=== PATIENT | male | born 1960 | race Caucasian/White ===

== ENCOUNTER 2020-03-30 14:58 | Emergency (ER) | payer OTHER ==
--- NOTE | 2020-03-30 15:14 | PDOC ---
Rapid Medical Evaluation Time Seen by Provider: 03/30/20 15:12 Medical Evaluation: 03/30/20 15:14 Pt presents for head and neck pain after a piece of ceiling fell on her head from a water leak. No loc Exam: NAD. No gross neuro deficits, moving all extremities Orders: defer to provider Pt to proceed to the ER for further evaluation
[2020-03-30 15:24] VITALS: PULSE 61; TEMP 97.8; BMI 30.7
[2020-03-30 15:44] VITALS: BP 173/106
--- NOTE | 2020-03-30 15:44 | PDOC ---
History of Present Illness - General Chief Complaint: Injury Stated Complaint: INJURY Time Seen by Provider: 03/30/20 15:12 History Source: Patient - History of Present Illness Occurred: reports: this morning Pain Location: reports: head Past History - Medical History Allergies/Adverse Reactions: Allergies Allergy/AdvReac Type Severity Reaction Status Date / Time No Known Allergies Allergy Verified 03/30/20 15:20 COPD: No - Psycho-Social/Smoking History Smoking History: Never smoked Review of Systems - Review of Systems Musculoskeletal: No: Back Pain, Neck Pain Neurological: Yes: Headache. No: Numbness, Tingling, Weakness, Dizziness *Physical Exam - Vital Signs Last Vital Signs Temp Pulse Resp BP Pulse Ox 97.8 F 61 18 174/108 H 98 03/30/20 15:18 03/30/20 15:18 03/30/20 15:18 03/30/20 15:18 03/30/20 15:18 - Physical Exam General Appearance: Yes: Appropriately Dressed. No: Apparent Distress HEENT: positive: Normal Voice Neck: positive: Supple. negative: Tender, Decreased range of motion Respiratory/Chest: negative: Respiratory Distress Extremity: positive: Normal Inspection. negative: Tender, Swelling Integumentary: positive: Dry, Warm Neurologic: positive: Fully Oriented, Alert, Normal Mood/Affect, Motor Strength 5/5 Medical Decision Making - Medical Decision Making 03/30/20 15:42 60-year-old male, h/o HTN, here for evaluation s/p injury this am. Pt states family were all in a bedroom about 7 hours ago at home when part of the ceiling fell onto all of them. Patient states he had mild ARMANDO earlier this am that has since resolved. On baby asa. No LOC, dizziness, blurry vision, n/v. Has not taken anything for pain. Patient well-appearing, in no apparent distress, with no evidence of serious injury at this time w/ intact neuro exam. BP significantly elevated. Patient reports compliance with meds. Asymptomatic from BP standpoint. Will give extra dose of home meds and encourage PMD follow- up in the a.m. for further management. Reasons to return discussed with patient Discharge - Discharge Information Problems reviewed: Yes Clinical Impression/Diagnosis: Injury, Elevated blood pressure reading Condition: Good Disposition: HOME - Follow up/Referral Referrals: Osman Klein [Primary Care Provider] - - Patient Discharge Instructions Additional Instructions: There was no evidence of serious injury on exam today. Your blood pressure was significantly elevated and you were given an extra dose of your lisinopril and carvedilol. Please resume home meds as directed and follow-up with your PMD in the a.m. to discuss further management. Please return for any worsening of symptoms as discussed today - Post Discharge Activity
[2020-03-30] MEDS ORDERED: CARVEDILOL 25 MG TABLET (FP) PO ONE (15:45)
[2020-03-30] MEDS ORDERED: LISINOPRIL 5 MG TABLET PO ONE (15:45)
[2020-03-30] MEDS ORDERED: CARVEDILOL 12.5 MG TABLET (FP) ONE (15:47)
[2020-03-30] MEDS ORDERED: LISINOPRIL 5 MG TABLET ONE (15:47)
== END 2020-03-30 15:53 | disposition home or self-care (01) ==
LOC: JER 14:58 → JERFT 14:58
DX: R03.0 Elevated blood-pressure reading, without diagnosis of hypertension (principal)
CPT/HCPCS: 99283-25